=== PATIENT | female | born 1945 | race Two or more races ===

== ENCOUNTER → 2017-02-19 | Outpatient (CLI) | payer MEDICARE, OTHER ==
[~2017-02-19] MED LIST: ASPI-535 PO; LOSA1TAB20 PO; SIMV20TA2 PO; VERA180C2 PO
--- NOTE | 2017-02-19 14:12 | RADRPT ---
PROCEDURE: XR right knee. CLINICAL INDICATION: Knee pain TECHNIQUE: AP weightbearing, PA weightbearing, lateral weightbearing and sunrise views are availab le for review. COMPARISON: None available FINDINGS: There is moderate osteoarthrosis involving the medial tibial femoral compartment, lateral tibial fem oral compartment and patellofemoral compartment. This is associated with joint space narrowing, subc hondral sclerosis and osteophytosis. There is diffuse osteopenia. No fractures are identified. No osseous lesions are identified. The soft tissues are unremarkable. IMPRESSION: Diffuse osteopenia Moderate osteoarthrosis involving the medial tibial femoral compartment, lateral tibial femoral comp artment and patellofemoral compartment. RPTAT: HGDB .Dameon Leon MD, MD Date Time Electronically viewed and signed by .Dameon Leon MD, on 02/19/2017 14:12 .B/
== END | disposition home or self-care (01) ==
LOC: HKI 10:40
PROVIDERS: ATTEND Orthopaedic Surgery
DX: M17.11 Unilateral primary osteoarthritis, right knee (principal); M25.561 Pain in right knee; M25.461 Effusion, right knee; M85.861 Other specified disorders of bone density and structure, right lower leg
CPT/HCPCS: 73564; G0463

== ENCOUNTER → 2017-03-10 | Outpatient (CLI) | payer MEDICARE, OTHER ==
--- NOTE | 2017-03-10 17:23 | RADRPT ---
PROCEDURE: Right knee radiographs. CLINICAL INDICATION: Right knee pain. TECHNIQUE: Four views. Weight bearing. Frontal, lateral, oblique, and patellar view. COMPARISON: 02/19/2017. FINDINGS: There is no fracture or dislocation. The soft tissues are normal. There is diffuse osteopenia. There are degenerative changes with osteophytes arising from all 3 joint compartment margins. There is medial joint compartment narrowing and subchondral sclerosis. There is no lytic or blastic lesion. There is no radiopaque foreign body. IMPRESSION: 1. Moderate degenerative changes of the right knee. 2. No acute abnormality. 3. No change from 02/19/2017. RPTAT: QQ .Ian Mcmahon MD, MD Date Time Electronically viewed and signed by .Ian Mcmahon MD, on 03/10/2017 17:22 .R/
== END | disposition home or self-care (01) ==
LOC: HKI 11:05
PROVIDERS: ATTEND Orthopaedic Surgery
DX: M25.561 Pain in right knee (principal); M25.461 Effusion, right knee; M17.11 Unilateral primary osteoarthritis, right knee
CPT/HCPCS: 20610; 73564; G0463

== ENCOUNTER → 2017-03-22 | Outpatient (CLI) | payer MEDICARE, OTHER | END | disposition home or self-care (01) | LOC: HKI 10:55 | PROVIDERS: ATTEND Orthopaedic Surgery | DX: M25.561 Pain in right knee (principal); M17.11 Unilateral primary osteoarthritis, right knee; S83.231A Complex tear of medial meniscus, current injury, right knee, initial encounter | CPT/HCPCS: G0463 ==